=== PATIENT | female | born 1980 | race Caucasian/White ===

== ENCOUNTER → 2019-11-12 12:46 | Outpatient (CLI) | payer OTHER, SELFPAY ==
[2019-11-12 17:22] LABS: Urine N gonorrhoeae NOT DETECTED
[2019-11-12 17:28] LABS: Urine Chlamydia NOT DETECTED
== END ==
PROVIDERS: Visit Provider Obstetrics & Gynecology
DX: Z34.81 Encounter for supervision of other normal pregnancy, first trimester (principal); Z11.3 Encounter for screening for infections with a predominantly sexual mode of transmission; Z3A.08 8 weeks gestation of pregnancy
CPT/HCPCS: 87491; 87591

== ENCOUNTER → 2019-12-15 08:59 | Outpatient (CLI) | payer OTHER, SELFPAY ==
[2019-12-15 09:41] LABS: Add Manual Diff / Slide Review NO; Basophils Absolute Auto 0 /uL (0-100); Basophils Percent Auto 0.3 % (0-2); Eosinophils Absolute Auto 100 /uL (0-450); Eosinophils Percent Auto 1.3 % (2-4); Hematocrit 36.2 % (36-46); Hemoglobin 12.2 g/dL (12.0-16.0); Lymphocytes Absolute Auto 1700 /uL (1100-4500); Lymphocytes Percent Auto 19.5 % (25-40); Mean Corpuscular HGB Conc 33.8 % (30-36); Mean Corpuscular Hemoglobin 27.8 PG (26-34); Mean Corpuscular Volume 82.3 fL (80-100); Monocytes Absolute Auto 600 /uL (0-900); Monocytes Percent Auto 7.4 % (3-14); Neutrophils Absolute Auto 6300 /uL (1500-7000); Neutrophils Percent Auto 71.5 % (50-75); Platelet Count 239 X10^3/uL (150-400); Red Blood Cell Count 4.39 X10^6/uL (4.0-5.2); Red Cell Distribution Width 13.7 % (11.6-14.8); White Blood Cell Count 8.8 X10^3/uL (4.5-11.0)
[2019-12-15 10:41] LABS: Hepatitis B Surface Antigen NEGATIVE s/c (NEGATIVE)
[2019-12-15 11:08] LABS: HIV 1 & 2 Ab/Ag 4th Gen Combo NEGATIVE (NEGATIVE); Hep C Virus Ab w/Reflex Quant NEGATIVE s/c (NEGATIVE)
[2019-12-16 07:56] LABS: RPR Screen Non Reactive (Non Reactive)
[2019-12-16 10:36] LABS: Varicella IgG Antibody 2073 index (Immune >165)
[2019-12-31 20:49] LABS: Sequential Screen 1st Trimeste See Separate Report
== END ==
PROVIDERS: PCP Obstetrics & Gynecology; Referring Provider Obstetrics & Gynecology; Visit Provider Obstetrics & Gynecology
DX: Z34.81 Encounter for supervision of other normal pregnancy, first trimester (principal); Z3A.11 11 weeks gestation of pregnancy
CPT/HCPCS: 36415; 80055; 84163; 84702; 86787; 86803; 86850; 86900; 86901; 87389

== ENCOUNTER → 2020-01-21 17:19 | Outpatient (CLI) | payer OTHER, SELFPAY ==
[2020-01-21 17:47] LABS: Add Manual Diff / Slide Review NO; Basophils Absolute Auto 0 /uL (0-100); Basophils Percent Auto 0.2 % (0-2); Eosinophils Absolute Auto 200 /uL (0-450); Eosinophils Percent Auto 1.6 % (2-4); Hematocrit 34.6 % (36-46); Hemoglobin 11.6 g/dL (12.0-16.0); Lymphocytes Absolute Auto 2400 /uL (1100-4500); Lymphocytes Percent Auto 23.1 % (25-40); Mean Corpuscular HGB Conc 33.6 % (30-36); Mean Corpuscular Hemoglobin 27.9 PG (26-34); Mean Corpuscular Volume 83.2 fL (80-100); Monocytes Absolute Auto 700 /uL (0-900); Monocytes Percent Auto 7.1 % (3-14); Neutrophils Absolute Auto 7000 /uL (1500-7000); Platelet Count 267 X10^3/uL (150-400); Red Blood Cell Count 4.16 X10^6/uL (4.0-5.2); Red Cell Distribution Width 13.8 % (11.6-14.8); White Blood Cell Count 10.3 X10^3/uL (4.5-11.0)
[2020-01-21 17:52] LABS: Appearance Urine UA CLEAR; Bilirubin Urine UA NEGATIVE (NEGATIVE); Color Urine UA YELLOW; Glucose Urine UA NEGATIVE (Negative); Ketones Urine UA NEGATIVE (NEGATIVE); Leukocyte Esterase Urine UA NEGATIVE (NEGATIVE); Nitrite Urine UA NEGATIVE (Negative); Occult Blood Urine UA NEGATIVE (Negative); Protein Urine UA NEGATIVE (Negative); Urobilinogen Urine UA 0.2 E.U./dL (0.2)
[2020-01-21 18:01] LABS: pH Urine UA 6.5 (4.5-8.0)
[2020-01-21 18:05] LABS: Aspartate Aminotransferase 35 IU/L (14-36); BUN Creatinine Ratio 18.4 (6-22); Blood Urea Nitrogen 9 mg/dL (7-17); Estimated Glomerular Filt Rate > 60.0 mL/min (>60); Uric Acid 2.1 mg/dL (2.5-6.2)
[2020-01-21 18:23] LABS: Creatinine Urine Random 40.1 mg/dL; Protein (Total) Urine Random 10 mg/dL (0-12); Protein Creatinine Ratio Urine 0.24 GRAM/24H
[2020-01-25 20:10] LABS: AFP, Serum 35.5 ng/mL (.); Estriol, Free 1.64 ng/mL (.); Inhibin A, Dimeric 148.04 pg/mL (.); Inhibin A, MoM 1.03 (.); Maternal Ethnicity Caucasian (.); Maternal Weight 192 lbs (.); Number of Fetuses No (.); OSBR Risk 1 IN 10000 (.); Results Report (.); Test Results *Screen Negative* (.); hCG, MoM 1.64 (.); hCG, Serum 37676 mIU/mL (.)
== END ==
PROVIDERS: PCP Obstetrics & Gynecology; Referring Provider Obstetrics & Gynecology; Visit Provider Obstetrics & Gynecology
DX: Z34.02 Encounter for supervision of normal first pregnancy, second trimester (principal); Z3A.15 15 weeks gestation of pregnancy
CPT/HCPCS: 36415; 81003; 82105; 82570; 82677; 84156; 84450; 84550; 84702; 85025; 86336; 87086

== ENCOUNTER → 2020-01-28 17:22 | Outpatient (CLI) | payer OTHER, SELFPAY | PROVIDERS: PCP Obstetrics & Gynecology; Referring Provider Obstetrics & Gynecology; Visit Provider Obstetrics & Gynecology | DX: O09.522 Supervision of elderly multigravida, second trimester (principal); Z36.8A Encounter for antenatal screening for other genetic defects | CPT/HCPCS: 82105 ==

== ENCOUNTER → 2020-02-09 14:11 | Outpatient (CLI) | payer OTHER, SELFPAY ==
--- NOTE | 2020-02-09 14:11 | DI.US.S_ITS ---
PROCEDURE: US OB >= 14 WEEKS FETUS INDICATIONS: ANATOMY OUTSIDE/PRIOR DATING DATA: Last menstrual period (LMP): 09/14/2019. LMP-based estimated date of delivery (JANINA): 06/20/2020 . First dating scan (date and location): 02/09/2020 . Estimated date of delivery (JANINA) from first dating scan: 06/28/2020 . TECHNIQUE: Real-time scanning was performed of the fetus, with image documentation and biometric measurements. Endovaginal scanning: No COMPARISON: [facility], , OB <= 14 WEEKS FETUS, 11/12/2019, 12:51. FINDINGS: General: A single living intrauterine gestation is present. Presentation: Vertex. Placenta: Placental position is posterior , without previa. Amniotic fluid index: 14.2 cm, normal range is 5-24 cm. heart rate: 152 beats per minute. Maternal cervical canal: 5.0 cm long. Normal lower limit is 2.5 cm. biometrics: Biparietal diameter: 19 weeks 5 days Head circumference: 19 weeks 4 days Abdominal circumference: 19 weeks 6 days Femur length: 20 weeks 4 days Estimated gestational age from initial scan: not applicable. Composite gestational age from present scan: 20 weeks 0 days Estimated weight and percentile: 333 g; 7th percentile. Measurement variability for biometric dating: +/- 7 days from 14 weeks to 15 weeks 6 days gestation, +/- 10 days from 16 weeks to 21 weeks 6 days gestation, +/- 2 weeks from 22 weeks to 27 weeks 6 days gestation, +/- 3 weeks for 28 weeks gestation or later. weight reference: 4500 g or EFW >90/95% is considered macrosomia or large for gestational age. EFW <10% is small for gestational age. EFW 5% or less is considered intra-uterine growth restriction. Anatomic survey: Neuro: Ventricles are non-dilated at less than 10 mm. Cisterna magna is normal at 3-11 mm. Cerebellum is normal in size and morphology. Nuchal skin fold: Normal at less than 6 mm between 14-21 weeks gestational age. Face: Nose and lips, facial profile are normal. Spine: No evidence for spina bifida. Heart: 4-chambered heart is present, with normal ventricular outflow tracts. Diaphragm: Diaphragm is intact. Stomach: Left-sided stomach is present. Kidneys: No hydronephrosis. Normal is less than 5 mm in 2nd trimester, less than 7 mm in 3rd trimester. Cord: 3-vessel cord has orthotopic insertion. Bladder: Normal in size. Extremities: All 4 extremities identified. IMPRESSION: 1. Single living IUP with mean composite gestational age of 20 weeks corresponding to ultrasound JANINA of 06/28/2020. 2. Normal anatomic survey. Dictated by: Fernie Ceron [facility] Interpreted: Liz Bonilla MD on 02/09/2020 at 16:38 Approved by: Liz Bonilla M.D. on 02/09/2020 at 16:58
== END ==
PROVIDERS: PCP Obstetrics & Gynecology; Referring Provider Obstetrics & Gynecology; Visit Provider Obstetrics & Gynecology
DX: O09.522 Supervision of elderly multigravida, second trimester (principal); Z36.89 Encounter for other specified antenatal screening; Z3A.20 20 weeks gestation of pregnancy
CPT/HCPCS: 76811

== ENCOUNTER → 2020-03-31 09:11 | Outpatient (CLI) | payer OTHER, SELFPAY ==
[2020-03-31 12:05] LABS: Hematocrit 34.5 % (36-46); Hemoglobin 11.4 g/dL (12.0-16.0)
[2020-03-31 12:27] LABS: GTT (PREG) 1 Hour PP 50gm Dose 97 mg/dL (76-139)
== END ==
PROVIDERS: PCP Nurse Practitioner Family; Referring Provider Obstetrics & Gynecology; Visit Provider Obstetrics & Gynecology
DX: Z34.82 Encounter for supervision of other normal pregnancy, second trimester (principal)
CPT/HCPCS: 36415; 82950; 85014; 85018

== ENCOUNTER → 2020-06-09 12:06 | Outpatient (CLI) | payer OTHER, SELFPAY ==
[2020-06-10 09:49] LABS: Strep Grp B PCR POS for Grp B Strep
== END ==
PROVIDERS: PCP Nurse Practitioner Family; Visit Provider Obstetrics & Gynecology
DX: Z34.83 Encounter for supervision of other normal pregnancy, third trimester (principal); Z3A.36 36 weeks gestation of pregnancy
CPT/HCPCS: 87653

== ENCOUNTER 2020-06-28 06:02 | Inpatient (IN) | payer OTHER, SELFPAY ==
[2020-06-28 07:30] VITALS: BP 134/74
--- NOTE | 2020-06-28 07:46 | PM.OBHP.1 ---
OB HPI Date/Time Date of admission: 06/28/20 Date Patient Seen: 06/28/20 Time Patient Seen: 07:47 History of Present Condition Chief complaint: INPT : 3 Para: 1 Narrative: Carmencita Amin is a 40 year old @39+2 with a history of primary c section for arrest of labor, presenting for scheduled repeat section with no complaints obstetrical or otherwise. Patient has had an uncomplicated though AMA, has been on ASA 162mg until 1 week ago. Patient has an otherwise uncomplicated history, had an early uncomplicated IAB in 2019. No other significant medical, surgical, family, social hx. Indications Operative indications ( section): previous uterine surgery History of Present care: good care, number of visits (10) and pounds weight gain (24) Dating criteria: based on 1st trimester US only Ultrasounds: normal mid trimester US Obstetrical complications: none Medical complications: none Preadmission Labs Blood type: AB (+) positive -: Antibody screen: negative, GBS status: positive, HBsAG: negative, HIV: negative and RPR/VDLR: negative -: Rubella: immune and Varicella: immune Integrated screen: wnl Urine: no growth 1 hr GTT: 97 Prior (ies) History: G1: 08/25/12, 40.6, 7 lb 15 oz, Female, - arrest G2: 03/01/19, elective , 9 wks Evaluation Evaluation Baseline heart rate: 135 Variability: Moderate (11-25) monitor accelerations: Present monitor decelerations: Absent Contraction Frequency (minutes): 15 Category of Tracing: Reactive Status: Category l PFSH Medical History AMA (advanced maternal age) multigravida 35+ Wrist fracture, right Surgical History H/O breast augmentation (~2017) H/O wisdom tooth extraction (~2014) Status post delivery (08/25/12) Family History Mother Anxiety Depression Father Alcoholic Family estrangement Grandfather No problems noted. Grandmother Dementia Grandfather Family estrangement Grandmother Family estrangement Cancer Social History marital status: number of children: 1 household members: spouse and children lives independently: Yes pets and animals: Yes (X 1 dog) education level: college occupational status: unemployed current occupational exposures/hazards: Yes Previous occupational history: [employer] works on [employer] special alex needs: No Smoking Status: Never smoker second hand exposure: No alcohol intake: former substance use type: does not use Meds Home Medications and Allergies Home Medications Medication Instructions Recorded Confirmed Type prenat.vits,ariel,hhg-ehwi-illrx 1 tab PO DAILY 11/11/19 06/28/20 History hydrocortisone 2.5 % topical cream 1 applic SD BID-QID PRN #30 g 05/20/20 06/28/20 Rx with perineal applicator famotidine 20 mg PO DAILY 06/28/20 06/28/20 History Allergies Allergy/AdvReac Type Severity Reaction Status Date / Time No Known Drug Allergies Allergy Verified 06/28/20 07:33 Review of Systems Constitutional Constitutional: Reports system reviewed and no additional complaints, except as documented Cardiovascular Cardiovascular: Reports system reviewed and no additional complaints, except as documented Respiratory Respiratory: Reports system reviewed and no additional complaints, except as documented Gastrointestinal Gastrointestinal: Reports system reviewed and no additional complaints, except as documented Genitourinary Genitourinary: Reports system reviewed and no additional complaints, except as documented Neurologic Neurologic: Reports system reviewed and no additional complaints, except as documented Exam Vital Signs (past 8 hours): - 06/28/20 07:30 Blood Pressure 134/74 Const General: cooperative, healthy appearing, comfortable and well groomed Resp Effort & Inspection: normal respiratory effort Auscultation: clear to auscultation bilaterally Cardio Rate: regular rate Rhythm: regular rhythm GI Palpation: No tender Extrem General: normal to inspection Objective Labs Result Diagrams: 06/28/20 06:21 Assessment and Plan Assessment and Plan Assessment and Plan narrative: This patient is admitted for scheduled repeat section without tubal ligation. She will be admitted in the usual fashion. Risks and benefits of repeat section were discussed and contrasted with TOLAC, and informed consent was obtained. - CBC, T&S, Covid testing pending
[2020-06-28 07:48] LABS: Add Manual Diff / Slide Review NO; Basophils Absolute Auto 0 /uL (0-100); Basophils Percent Auto 0.4 % (0-2); Eosinophils Absolute Auto 200 /uL (0-450); Eosinophils Percent Auto 1.4 % (2-4); Hemoglobin 10.1 g/dL (12.0-16.0); Lymphocytes Absolute Auto 2000 /uL (1100-4500); Lymphocytes Percent Auto 18.4 % (25-40); Mean Corpuscular HGB Conc 33.5 % (30-36); Mean Corpuscular Hemoglobin 25.6 PG (26-34); Mean Corpuscular Volume 76.5 fL (80-100); Monocytes Absolute Auto 1000 /uL (0-900); Monocytes Percent Auto 8.8 % (3-14); Neutrophils Absolute Auto 7800 /uL (1500-7000); Platelet Count 256 X10^3/uL (150-400); Red Blood Cell Count 3.93 X10^6/uL (4.0-5.2)
--- NOTE | 2020-06-28 07:48 | PM.PREOP ---
Pre-operative Note COVID-19 COVID-19 status: Result pending Result date/Date tested (Pos, Neg/Pending): 06/28/20 Interval Note History & Physical reviewed/Exam performed by Physician: Yes Changes to H&P: Yes
--- NOTE | 2020-06-28 08:06 | SUR.OPER ---
Supine on Padded OR bed, head on pillow, safety belt at thigh, arms secured on padded arm boards at <90 degrees abduction. Bump under right buttock. Legs uncrossed with pillow under knees, gel pad to heels, tape over blanket to lower legs.
[2020-06-28 08:11] LABS: COVID19 - ADMIT (NP swab/PCR) Negative (Negative)
[2020-06-28] MEDS: CEFAZOLIN 2 GM/100 ML FROZ.PIGGY IV (08:24)
[2020-06-28] MEDS: ACETAMINOPHEN IV 1,000 MG/100 ML VIAL 400 MG IV (08:40)
--- NOTE | 2020-06-28 09:02 | SUR.OPER ---
Viable female delivered at 0855. placenta delivered following. Cord blood tubes X2 and placenta given to L&D RN.
[2020-06-28 09:44] VITALS: BP 111/67; PULSE 75; RESP 15; TEMP 36.4; O2SAT 100
--- NOTE | 2020-06-28 09:47 | P.OP_ITS ---
Operative Date/Time/Diagnoses Date of procedure: 06/28/20 Time of procedure: 08:30 Pre-op diagnosis: repeat section Post-op diagnosis: same Procedure & Clinicians Procedure: repeat section Same procedure as scheduled: Yes Indications: history of section Surgeon: Lea Cleveland Hotel Room Attendant: Sandy Peña Reason for Hotel Room Attendant: Dr. Peña was present throughout the case and her assistance was rees for retraction and delivery of the fetus. Anesthesia Type: Spinal Operative Notes Findings: Arcuate uterus. Normal tubes and ovaries. Female infant in cephalic presentation, weight 7#12, apgars 6+8 Closure Type: primary Specimen(s): cord blood Intraoperative meds administered: Pitocin Applied: Catheter Estimated Blood Loss (mL): 500 Blood products transfused: none Procedure in detail: EBL: 500ccs Fluids:800ccs LR UOP: 200ccs yellow urine Procedures: The patient was taken to the operating room where spinal anesthesia was placed and found to be adequate. She was prepped and draped in the normal sterile fashion in the dorsal supine position with a leftward tilt. A Pfannenstiel skin incision was made with a scalpel and carried through to the underlying layer of fascia. The fascia was incised in the midline and the incision extended laterally with You scissors. The superior aspect of this incision was grasped with Kole clamps, elevated, and the underlying rectus muscles dissected off bluntly and with the curved You scissors. Attention was then turned to the inferior aspect of this incision which, in a similar fashion, was grasped, tented up with the Kole clamps, and the rectus muscles dissected off bluntly and with the curved You scissors. The rectus muscles were then in the midline, and the peritoneum identified, tented up, and entered sharply with Metzenbaum scissors. The peritoneal incision was extended superiorly and inferiorly with good visualization of the bladder. The bladder blade was inserted and the vesicouterine peritoneum identified, grasped with pickups, and entered sharply with the Metzenbaum scissors. This incision was extended laterally, and the bladder flap created digitally. The bladder blade was then reinserted and the lower uterine segment incised in transverse fashion with the scalpel. The uterine incision was bluntly extended laterally. The bladder blade was removed, and the 's head delivered atraumatically with assistance of a vacuum due to resistance from scar tissue. After 30 seconds of delayed cord clamping, the cord was clamped and cut. The nose and mouth were suctioned as needed with a bulb syringe, and the infant was handed off to awaiting pediatricians. The placenta was then removed spontaneously, and the uterus was exteriorized and cleared of all clots and debris. The uterine incision was repaired with 1-0 chromic in a running, locked fashion and a 2nd layer of the same suture was used to obtain excellent hemostasis. The uterus was returned to the abdomen, and the gutters were cleared of all clots and debris. The bladder flap was closed with 2-0 Vicryl in a running fashion, the peritoneum was closed with 3-0 Vicryl, and the fascia reapproximated with 0 Vicryl in a running fashion. The subcutaneous layer was placed with 3 0 Vicryl in an interrupted fashion and the skin was closed with 4-0 biosyn in a running fashion. The patient tolerated the procedure well sponge lap and needle counts were correct x2. 2 g of Ancef were given at commencement of the case. The patient was taken to the recovery room in stable condition. Complications: none [place] Baby 1: Gender: Female Presentation: vertex Position: Left Occiput Anterior Placental Delivery Description: Manual Removal Cord Vessel Description: 3 Vessels score (1 min): 6 score (5 min): 8 weight: 7 lb 12 oz Post-operative Condition: stable Disposition: PACU Aftercare: routine postop
[2020-06-28 09:49] VITALS: BP 113/65; PULSE 72; RESP 15; O2SAT 100
[2020-06-28 09:54] VITALS: BP 116/59; PULSE 68; RESP 16; O2SAT 100
[2020-06-28 10:08] VITALS: BP 129/73; PULSE 88; RESP 20; TEMP 36.4; O2SAT 100
[2020-06-28 10:12] VITALS: BP 126/81; PULSE 90; RESP 18; O2SAT 100
--- NOTE | 2020-06-28 10:37 | SUR.PHASEI ---
Stable PACU stay, report called to ONESIMO Hoang. Pt transported to room 1 and left in stable condition.
[2020-06-28] MEDS: diphenhydrAMINE 50 MG/ML VIAL 25 MG IV (11:28)
[2020-06-28] MEDS: KETOROLAC 30 MG/ML VIAL IV ×2 (15:38→23:13)
[2020-06-29] MEDS: LACTATED RINGERS 1,000 ML 100 ML IV (02:56)
[2020-06-29] MEDS: KETOROLAC 30 MG/ML VIAL IV (05:30)
[2020-06-29 06:33] LABS: Add Manual Diff / Slide Review YES; Mean Corpuscular HGB Conc 33.3 % (30-36); Mean Corpuscular Hemoglobin 25.4 PG (26-34); Mean Corpuscular Volume 76.2 fL (80-100); Platelet Count 211 X10^3/uL (150-400); Red Blood Cell Count 3.55 X10^6/uL (4.0-5.2); Red Cell Distribution Width 14.4 % (11.6-14.8); White Blood Cell Count 10.5 X10^3/uL (4.5-11.0)
[2020-06-29 07:02] LABS: Neutrophils Absolute Manual 8715 /uL (3000-5900); RBC Morphology Normal Morphology; Total Cells Counted 100
--- NOTE | 2020-06-29 09:48 | P.PNOB_ITS ---
Subjective - OB Subjective Patient comments: no complaints, pain well controlled, tolerating diet and flatus present baby status: doing well feeding status: exclusively breast feeding Narrative: This patient is POD#1 s/p scheduled repeat section. Patient reports feeling well with good pain control on NSAIDs, tolerating PO, ambulating, mild lochia, passing flatus, urinating normally, with no PIH or other symptoms. Patient strongly desires discharge on evening of POD#1. Date Patient Seen: 06/29/20 Time Patient Seen: 09:48 Exam Vital Signs (past 8 hours): 120/66, HR 70, RR 18, Afebrile Oxygen Delivery Method Room Air Const General: cooperative, healthy appearing and comfortable Resp Effort & Inspection: normal respiratory effort Auscultation: clear to auscultation bilaterally Cardio Rate: regular rate Rhythm: regular rhythm GI Inspection: incision (c/d/i, clean aquacell dressing) Palpation: soft and No tender Extrem General: normal to inspection Objective Labs Result Diagrams: 06/29/20 06:10 Labs: Laboratory Results - last 24 hr 06/29/20 06:10 WBC 10.5 RBC 3.55 L Hgb 9.0 L Hct 27.0 L MCV 76.2 L MCH 25.4 L MCHC 33.3 RDW 14.4 Plt Count 211 Neut % (Auto) Not Reportable Lymph % (Auto) Not Reportable [place] % (Auto) Not Reportable Eos % (Auto) Not Reportable Baso % (Auto) Not Reportable Lymph # (Auto) Not Reportable [place] # (Auto) Not Reportable Baso # (Auto) Not Reportable Total Counted 100 Seg Neutrophils % 82.0 H Band Neutrophils % 1.0 L Lymphocytes % (Manual) 12.0 L Atypical Lymphs % 2.0 H Monocytes % (Manual) 3.0 Neutrophils # (Manual) 8715 H RBC Morphology Normal morphology Assessment & Plan Assessment and Plan (1) delivery delivered: Status: Acute Plan day: 1 plan OB: routine postop care Comments: Patient meeting postoperative goals well. Discussed precautions if discharge this evening. Time Spent With Patient Time: Total time spent is greater than 50% in coordination of care (as documented) at patient's floor/unit and/or counseling patient: Time with patient: 15-24 minutes
--- NOTE | 2020-06-29 09:53 | PM.OBDS.1 ---
Discharge Providers Provider Date of admission: 06/28/20 06:02 Discharge Date: 06/29/20 Primary care physician: KESHAV Adams Consults: 06/28/20 10:43 Consult to Fire Sprinkler Service Technician Routine Comment: Discharge provider: Lea Cleveland MD Summary Hospital Course Date Patient Seen: 06/30/20 Time Patient Seen: 17:42 Diagnoses: Scheduled repeat section Hospital Course: This patient was admitted for scheduled repeat section. The procedure was performed without complication, and the patient did well postoperatively, meeting postoperative goals early. Patient strongly desired discharge home on the evening of postop day 1, and precautions for return were stressed. Peripartum Data Infant Delivery Method: Section complications: none [place] 1: Gender: Female Disposition of : home Discharge Diagnosis (1) delivery delivered: Status: Acute Status at Discharge Cognitive/behavioral status at discharge: oriented Functional status at discharge: independent ambulation Overall status at discharge: patient is progressing back to baseline Time Spent with Patient Time attestation: Total time spent providing and/or coordinating discharge services: Time spent: Less than 30 minutes Objective Labs Result Diagrams: 06/29/20 06:10 Labs: Laboratory Results - last 24 hr 06/29/20 06:10 WBC 10.5 RBC 3.55 L Hgb 9.0 L Hct 27.0 L MCV 76.2 L MCH 25.4 L MCHC 33.3 RDW 14.4 Plt Count 211 Neut % (Auto) Not Reportable Lymph % (Auto) Not Reportable [place] % (Auto) Not Reportable Eos % (Auto) Not Reportable Baso % (Auto) Not Reportable Lymph # (Auto) Not Reportable [place] # (Auto) Not Reportable Baso # (Auto) Not Reportable Total Counted 100 Seg Neutrophils % 82.0 H Band Neutrophils % 1.0 L Lymphocytes % (Manual) 12.0 L Atypical Lymphs % 2.0 H Monocytes % (Manual) 3.0 Neutrophils # (Manual) 8715 H RBC Morphology Normal morphology Exam Vital Signs (past 8 hours): Vital signs stable, see day of discharge progress note Oxygen Delivery Method Room Air Discharge Plan Discharge Plan Patient Disposition: Home Discharge orders & Medications Prescriptions: New oxycodone 5 mg tablet 5 mg PO Q6H PRN (Reason: pain) Qty: 14 RF: 0 Continued hydrocortisone [Anusol-HC] 2.5 % cream with perineal applicator 1 applic [place] BID-QID PRN (Reason: hemorroids in ) Qty: 30 RF: 4 prenat.vits,ariel,yas-tawm-ybynj Tablet 1 tab PO DAILY RF: 0 famotidine 20 mg Tablet 20 mg PO DAILY RF: 0 Follow up/Referrals: Zo Lemos ARNP [Primary Care Provider] - [place] Lea [Physician] - 1 Week (Incision check Saturday, 07/05, 10:15am) Diet/Activity/Treatments Diet: Regular Activity: Nothing in the vagina for 6 weeks. Avoid lifting more than 10 lbs for 6 weeks. If you have increasing bleeding, fevers, chills, nausea, vomiting, headaches, or any other symptoms or concerns, call or come to the emergency room. Skin/Wound/Dressing Care Report to your healthcare provider any signs of infection, such as:: chills, fever, night sweats, increased pain, unusual drainage and unusual redness Visit Report/Discharge Packet Instructions: DI for Stand Alone Forms: Discharge: Care Discharge Data Primary Care Provider: Zo Lemos
[2020-06-29 10:41] VITALS: BP 120/66; PULSE 70; RESP 18; TEMP 37
[2020-06-29] MEDS: DOCUSATE 250 MG CAPSULE PO (11:58)
[2020-06-29] MEDS: ACETAMINOPHEN 325 MG TABLET 650 MG PO (11:59)
[2020-06-29] MEDS: IBUPROFEN 600 MG TABLET PO (11:59)
[2020-06-29 14:55] VITALS: BP 120/66; PULSE 70; RESP 18; TEMP 37
== END 2020-06-29 16:15 | disposition home or self-care (01) | DRG 788 ==
PROVIDERS: Admitting Provider Obstetrics & Gynecology; PCP Nurse Practitioner Family; Referring Provider Obstetrics & Gynecology; Visit Provider Obstetrics & Gynecology
PROC: 10D00Z1 Extraction of Products of Conception, Low, Open Approach (ICD-10-PCS; CPT 59514; principal; 2020-06-28 07:45)
DX: O34.219 Maternal care for unspecified type scar from previous cesarean delivery (principal); Z3A.39 39 weeks gestation of pregnancy; Z37.0 Single live birth; O99.824 Streptococcus B carrier state complicating childbirth; Z20.822 Contact with and (suspected) exposure to COVID-19
CPT/HCPCS: 36415; 59510; 59514; 85007; 85025; 86850; 86900; 86901; 87635; J0131; J0330; J0690; J1200; J1885; J2274; J2590

== ENCOUNTER → 2020-09-09 10:32 | Outpatient (CLI) | payer OTHER, SELFPAY ==
[2020-09-09 11:37] LABS: COVID19 -Nasal RAPID Negative (Negative)
== END ==
PROVIDERS: PCP Nurse Practitioner Family; Visit Provider Surgery
DX: Z01.812 Encounter for preprocedural laboratory examination (principal); Z20.822 Contact with and (suspected) exposure to COVID-19
CPT/HCPCS: 87635; C9803

== ENCOUNTER 2020-09-12 06:30 | Day surgery (SDC) | payer OTHER, SELFPAY ==
[2020-09-08 08:52] VITALS: BMI 30.8
[2020-09-12] VITALS (12 sets, daily range): BP systolic 103–141; BP diastolic 43–81; PULSE 52–91; RESP 7–20; TEMP 36.7–37.2; O2SAT 96–100; BMI 30.4
--- NOTE | 2020-09-12 | PATH_ITS ---
[facility] Accession Number: [id number] . 01 Material submitted: . hemorrhoids - HEMORRHOIDS . 02 Diagnosis: Hemorrhoid, Biopsy: Consistent with hemorrhoidal tissue. No evidence of neoplasm. V 09/14/2020 1219 Local . 02 Electronically signed: . Staci Mata MD, Pathologist NPI- [id number] . 01 Gross description: . The specimen is received in formalin, labeled hemorrhoids and consists of multiple curtis-purple fragments of soft tissue ranging from 0.5-3.0 cm and measuring 5.5 x 4.0 x 1.0 cm in aggregate. The margins are inked blue. Curing Room Supervisor sections are submitted in cassettes A1-A2. (EA:[id number]) /V 09/13/2020 1148 Local . 02 Pathologist provided ICD-10: K64.9 . 02 CPT . 078219 Performed at: 01 [facility] Cyt[facility] [address] [facility], [place], [place] [id number] MD Brendan Lora MD Phone: [phone] Performed at: 02 [facility] [address] [place], [place] [id number] MD Staci Mata MD Phone: [phone]
[2020-09-12] MEDS: LACTATED RINGERS 1,000 ML 100 ML IV (07:15)
--- NOTE | 2020-09-12 07:30 | P.HP_ITS ---
History of Present Illness History of Present Illness Date Patient Seen: 09/12/20 Time Patient Seen: 07:31 Chief complaint: [facility] Narrative: This is a 40-year-old woman who has had hemorrhoids for several years. They initially flared up during her 1st in 2012, and they are quite painful during her . They flared up again during her most recent this year. She gave on June 28. Her greatest complaint is the swelling of the external hemorrhoids which have become thrombosed and quite painful several times during her . They are now tender and difficult to keep clean. She does have a tendency to sit on the toilet for more than 2 minutes. She sometimes has for 15 minutes in order to have time alone. She uses Metamucil and magnesium to keep herself regular. She says during her she had very large stools, but she really has hard stools. She feels that she is pretty regular since , and especially with using Metamucil and magnesium daily. And she knows that she needs to stop spending as much time sitting on the toilet. She denies any significant bleeding or any ongoing pain since the last time the hemorrhoids thrombosed. ROS: Anxiety. Thirteen system review is otherwise negative other than as mentioned below and in HPI. PE: GENERAL: Well groomed and cooperative. Appears stated age. Answers questions promptly and appropriately. Vital signs noted. HENT: Normocephalic, atraumatic. Hearing intact. EYES: Conjunctiva pink, sclera white, no periorbital swelling. CARDIOVASCULAR: Regular rate. No pedal edema. RESPIRATORY: Non-tachypneic, breathing comfortably on room air. GASTROINTESTINAL: Abdomen soft and non-distended GENITALURINARY: No flank tenderness. MUSCULOSKELETAL: Equal tone and mass bilaterally. SKIN: Warm, dry, soft, appropriate color for ethnicity. No other lesions, rashes, or wounds. NEURO: Alert and Oriented X 3. No gross sensory deficits, or cognitive issues. PSYCH: Appropriate affect and mood. Patient History Medical History AMA (advanced maternal age) multigravida 35+ Wrist fracture, right Surgical History H/O breast augmentation (~2017) H/O wisdom tooth extraction (~2014) History of (06/28/20) Status post delivery (08/25/12) Family & Social History Family History Mother Anxiety Depression Father Alcoholic Family estrangement Grandfather No problems noted. Grandmother Dementia Grandfather Family estrangement Grandmother Family estrangement Cancer Social History: household members spouse,children lives independently Yes Tobacco & Substance use: Smoking Status Never smoker alcohol intake former Substance Use Type does not use Meds Home Medications and Allergies Home Medications Medication Instructions Recorded Confirmed Type escitalopram oxalate 10 mg tablet 10 mg PO DAILY 08/03/20 09/12/20 History spironolactone 25 mg tablet 25 mg PO DAILY 08/03/20 09/12/20 History desogestrel-e.estradiol 0.15 1 tab PO DAILY #84 tab 08/08/20 09/12/20 Rx mg-0.02 mg(21)/e.estrad 0.01 mg(5) tablet Allergies Allergy/AdvReac Type Severity Reaction Status Date / Time No Known Drug Allergies Allergy Verified 08/08/20 10:15 Exam Vital Signs (past 8 hours): - 09/12/20 06:50 Temperature 98.1 F Pulse Rate 52 L Respiratory Rate 20 Blood Pressure 122/72 Pulse Oximetry 100 Oxygen Delivery Method Room Air Assessment & Plan Assessment and plan (1) Hemorrhoids: Qualifiers: Hemorrhoid type: unspecified Qualified Code(s): K64.9 - Unspecified hemorrhoids Status: Acute Assessment & Plan narrative: I again discussed with the patient her exam findings and symptoms, discussing risks and benefits of surgery. The patient's main concern is swelling and thrombosis of her external hemorrhoid area. She has remnant tissue there which continues to cause her irritation and discomfort, and which are difficult to keep clean. She has grade 2 internal hemorrhoids at the right posterior column, and likely in the right anterior and left columns as well. I again explained to the patient that recovery from the surgery can be quite difficult and painful. I explained to her that she will likely need 1-3 weeks off of work. I explained to her that she may have some scarring or cosmetic outcome that she is not pleased with. I explained that I will do everything I can to leave her with a good cosmetic outcome, but that I do not have complete control over her body scars especially with any episodes of constipation, straining, or just regular passage of bowel movements which disrupt the surgical site and her healing. Explained the other risks of surgery including bleeding, infection, damage to nearby structures, need for additional procedures. I explained the patient I will only be here until September 28, and if her recovery is prolonged, she may need to follow-up with 1 of my partners after that time. The patient is in agreement with this plan, and would like to proceed with hemorrhoidectomy. We will definitely plan on removing the external hemorrhoid remnants which are bothering her, and we will remove any significant internal hemorrhoids that are found on anorectal exam under anesthesia. The patient desires to proceed with surgery. COVID-19 COVID-19 status: Negative Result date/Date tested (Pos, Neg/Pending): 09/09/20 Time Spent With Patient Time with patient: 15-24 minutes Quality VTE Deep Vein Thrombosis/Pulmonary Embolism Present on Admission: No
[2020-09-12] MEDS: CEFAZOLIN 1 GM VIAL 2 GM IV (07:50)
[2020-09-12] MEDS: metroNIDAZOLE 500 MG/100 ML PIGGYBACK 100 MG IV (07:55)
--- NOTE | 2020-09-12 08:12 | SUR.OPER ---
Prone on padded OR bed, head in foam head support, gel chest rolls, gel pad under knees, pillow under lower legs, toes free of pressure, arms secured on padded arm boards at <90 degrees abduction. Safety belt at thigh.
[2020-09-12] MEDS: DIBUCAINE 1% OINT 28 GM 1 APPLIC TOP (08:15)
[2020-09-12] MEDS: BUPIVACAINE 0.5% (PF) VIAL 30 ML INJ (08:16)
[2020-09-12] MEDS: BUPIVACAINE LIPOSOME 266 MG/20 ML VIAL INJ (08:16)
[2020-09-12] MEDS: EPINEPHrine 1 MG/ML IV (08:18)
--- NOTE | 2020-09-12 08:56 | P.OP_ITS ---
Operative Date/Time/Diagnoses Date of procedure: 09/12/20 Time of procedure: 08:56 Pre-op diagnosis: hemorrhoids Post-op diagnosis: other (circumferential internal and external hemorrhoids) Procedure & Clinicians Procedure: Hemorrhoidectomy Same procedure as scheduled: Yes Indications: Symptomatic internal and external hemorrhoids Surgeon: Michelle William Click Yes if Unassisted: Yes Anesthesia Type: General Operative Notes Findings: Large circumferential internal and external hemorrhoids, Specimen(s): other (Hemorrhoids) Estimated Blood Loss (mL): 5 Procedure in detail: The patient was brought into the OR. Sequential compression devices were placed on both legs and turned on. Appropriate periop erative antibiotics were given. General anesthesia was induced and the patient was intubated. The patient was turned prone onto the OR table. All bony prominences were padded. The buttocks were taped apart. The perianal area was prepped and draped in sterile fashion with betadine prep. Surgical timeout was conducted. 0.5% Marcaine with epi was used to perform a four quadrant anal block using 5mL per quadrant for a total of 20mL. On external exam there were moderate circumferential external hemorrhoids seen. With copious lubricant, an anorectal exam was performed. Large internal hemorrhoids were also seen circumferentially. The right posterior internal hemorrhoid was grasped proximal to the dentate line and an 0 Vicryl suture was placed in the base of the hemorrhoidal vessel and secured. The hemorrhoid was divided using Harmonic scalpel and dissected out including the involved vessel, excising the internal and external hemorrhoidal column. Using cautery an 0 Vicryl suture, good hemostasis was achieved. The left lateral internal hemorrhoid was grasped proximal to the dentate line and an 0 Vicryl suture was placed in the base of the hemorrhoidal vessel and secured. The hemorrhoid was divided using Harmonic scalpel and dissected out including the involved vessel, excising the internal and external hemorrhoidal column. Using cautery and an 0 Vicryl suture, good hemostasis was achieved. The 3rd hemorrhoidal column, in the right anterior position, was examined. Due to the extensive circumferential nature of her hemorrhoids, I elected not to excise the 3rd column, but rather obliterated the feeding vessel using 0 Vicryl suture. There was a large skin tag in the anterior position, which was then removed with Harmonic scalpel. Good hemostasis was observed in all areas. An additional 20 mL of super 5% Marcaine with epi was used for a total of 40 mL for the case. Circumferential local anesthetic was infiltrated. 20mL of Exparel was also used to inject the anoderm and anal canal circumferentially 2-3mL per cm. A large Gelfoam was then coated and rolled with Dibucaine and placed in the anal canal. A thick layer of Dibucaine was used to coat the anoderm. A stack of 4x4 gauze was then used to cover the anal opening and secured in place with medipore tape. The patient was transferred onto her hospital bed into supine position. She was then awakened from anesthesia and extubated. Needle, sponge, and instrument counts were correct x 2. The patient was transferred to the PACU in stable condition. Complications: none Post-operative Condition: stable Disposition: PACU
[2020-09-12] MEDS: RACEPINEPHRINE 0.5 ML NEB INH (09:52)
--- NOTE | 2020-09-12 10:03 | SUR.PHASEI ---
Addendum entered by Jamal Bowser R.N. 09/12/20 11:01: after approx 30 mins. pts voice had improved to a whisper. Dr Laird her original anesthesiologist, explained the possibilities of what occurred by ok'd her for discharge Original Note: pt arrived from OR without a voice. Dr Bowers consulted with pt determined it was laryngitis and racephinephrine was ordered.
== END 2020-09-12 10:45 | disposition home or self-care (01) ==
PROVIDERS: PCP Nurse Practitioner Family; Referring Provider Surgery; Visit Provider Surgery
PROC: (CPT 46260; principal; 2020-09-12 07:45)
DX: K64.8 Other hemorrhoids (principal); K64.4 Residual hemorrhoidal skin tags
CPT/HCPCS: 46260; 81025; C9290; J0171; J0690; J1100; J2250; J2405; J2704; J3010